=== PATIENT | female | born 1960 | race American Indian/Alaskan Native ===

== ENCOUNTER 2017-07-14 11:05 | Inpatient (IN) | payer MEDICARE, OTHER ==
--- NOTE | 2017-07-14 12:21 | Emergency Department Report ---
ED General Adult HPI - General Chief complaint: Dyspnea/Respdistress Stated complaint: DIFFICULTY BREATHING Source: patient, EMS (ems notes not available at time of chart dictation), RN notes reviewed Mode of arrival: Stretcher Limitations: No Limitations - History of Present Illness Initial comments: This is a 57-year-old female who was previously unknown to this provider. She does not make urine, has a past medical history of end-stage renal disease on dialysis. Patient got dialysis today, reports that they only took off 4 L, thinks that she is still by overloaded. Complains of pain with shortness of breath. Also admits to facial swelling. Denies dietary indiscretions. He has chronic left foot pain secondary to chronic gout, however this is not her main complaint. She reports her symptoms typically improves with dialysis. The patient further reports that she was recently admitted to [facility], had a superficial anterior abdominal wall surgery performed, but she is not having abdominal pain at this time. -: Gradual Consistency: constant Improves with: rest Worsens with: movement Associated Symptoms: shortness of breath - Related Data Allergies Allergy/AdvReac Type Severity Reaction Status Date / Time No Known Allergies Allergy Unverified 07/14/17 12:01 ED Review of Systems ROS: Stated complaint: DIFFICULTY BREATHING Other details as noted in HPI Constitutional: denies: fever ENT: denies: congestion Respiratory: shortness of breath, SOB with exertion Cardiovascular: dyspnea on exertion Gastrointestinal: denies: abdominal pain, nausea, vomiting Genitourinary: as per HPI Musculoskeletal: as per HPI Skin: as per HPI Neurological: as per HPI Psychiatric: as per HPI, anxiety ED Past Medical Hx - Past Medical History Previous Medical History?: Yes Hx Hypertension: Yes Hx Asthma: Yes Additional medical history: ESRD, gout - Social History Smoking Status: Current Every Day Smoker ED Physical Exam - General Limitations: No Limitations General appearance: alert - Head Head exam: Present: atraumatic, normocephalic - Eye Eye exam: Present: normal appearance - ENT ENT exam: Present: normal exam, normal orophraynx, mucous membranes moist, normal external ear exam - Neck Neck exam: Present: normal inspection, full ROM - Respiratory Respiratory exam: Present: respiratory distress, rales - Cardiovascular Cardiovascular Exam: Present: regular rate, normal rhythm, normal heart sounds, JVD (4 cm of jugular venous distention bilaterally). Absent: systolic murmur, diastolic murmur, rubs, gallop - GI/Abdominal GI/Abdominal exam: Present: soft, normal bowel sounds. Absent: distended, tenderness, guarding, rebound, rigid - Extremities Exam Extremities exam: Present: normal inspection, pedal edema. Absent: calf tenderness - Back Exam Back exam: Present: normal inspection, full ROM. Absent: tenderness, CVA tenderness (R), paraspinal tenderness, vertebral tenderness - Neurological Exam Neurological exam: Present: alert, oriented X3, CN II-XII intact, other ( Extraocular movements intact. Tongue midline. No facial droop. Facial sensation intact to light touch in the V1, V2, V3 distribution bilaterally. 5 and 5 strength in 4 extremities.. Sensation is intact to light touch in 4 extremities.). Absent: motor sensory deficit - Psychiatric Psychiatric exam: Present: normal affect, normal mood - Skin Skin exam: Present: warm, dry, intact, normal color. Absent: rash ED Course Vital Signs 07/14/17 07/14/17 11:53 14:34 Temperature 97.9 F Pulse Rate 60 88 Respiratory 20 24 Rate Blood Pressure 140/61 Blood Pressure 145/88 [Right] O2 Sat by Pulse 100 100 Oximetry - EJ/Peripheral Line Neck L Time Out Performed: Yes Indications: nurses unable to establis Skin Cleansed in Sterile Fashion: Yes Size: 20 Dressing Placed: Tegaderm Patient Tolerated Procedure: well ED Medical Decision Making - Lab Data Result diagrams: 07/14/17 12:09 07/14/17 12:09 Vital Signs 07/14/17 07/14/17 11:53 14:34 Temperature 97.9 F Pulse Rate 60 88 Respiratory 20 24 Rate Blood Pressure 140/61 Blood Pressure 145/88 [Right] O2 Sat by Pulse 100 100 Oximetry Lab Results 07/14/17 07/14/17 07/14/17 Range/Units 12:09 12:09 12:09 WBC 17.6 H (4.5-11.0) K/mm3 RBC 3.19 L (3.65-5.03) M/mm3 Hgb 10.2 (10.1-14.3) gm/dl Hct 30.7 (30.3-42.9) % MCV 97 (79-97) fl MCH 32 (28-32) pg MCHC 33 (30-34) % RDW 14.9 (13.2-15.2) % Plt Count 266 (140-440) K/mm3 Lymph % (Auto) 7.2 L (13.4-35.0) % [place] % (Auto) 3.9 (0.0-7.3) % Eos % (Auto) 0.1 (0.0-4.3) % Baso % (Auto) 0.2 (0.0-1.8) % Lymph # 1.3 (1.2-5.4) K/mm3 [place] # 0.7 (0.0-0.8) K/mm3 Eos # 0.0 (0.0-0.4) K/mm3 Baso # 0.0 (0.0-0.1) K/mm3 Seg Neutrophils % 88.6 H (40.0-70.0) % Seg Neutrophils # 15.6 H (1.8-7.7) K/mm3 PT (12.2-14.9) Sec. INR (0.87-1.13) APTT (24.2-36.6) Sec. Sodium 141 (137-145) mmol/L Potassium 4.3 (3.6-5.0) mmol/L Chloride 95.0 L (98-107) mmol/L Carbon Dioxide 25 (22-30) mmol/L Anion Gap 25 mmol/L BUN 59 H (7-17) mg/dL Creatinine 6.8 H (0.7-1.2) mg/dL Estimated GFR 8 ml/min BUN/Creatinine Ratio 9 % Glucose 108 H (65-100) mg/dL Calcium 8.4 (8.4-10.2) mg/dL Troponin T 0.071 H (0.00-0.029) ng/mL NT-Pro-B Natriuret Pep 8260 H (0-900) pg/mL Triglycerides 198 H (2-149) mg/dL Cholesterol 227 H (50-199) mg/dL LDL Cholesterol Direct 51 (50-130) mg/dL HDL Cholesterol 174 H (40-59) mg/dL Cholesterol/HDL Ratio 1.30 % 07/14/17 Range/Units 12:22 WBC (4.5-11.0) K/mm3 RBC (3.65-5.03) M/mm3 Hgb (10.1-14.3) gm/dl Hct (30.3-42.9) % MCV (79-97) fl MCH (28-32) pg MCHC (30-34) % RDW (13.2-15.2) % Plt Count (140-440) K/mm3 Lymph % (Auto) (13.4-35.0) % [place] % (Auto) (0.0-7.3) % Eos % (Auto) (0.0-4.3) % Baso % (Auto) (0.0-1.8) % Lymph # (1.2-5.4) K/mm3 [place] # (0.0-0.8) K/mm3 Eos # (0.0-0.4) K/mm3 Baso # (0.0-0.1) K/mm3 Seg Neutrophils % (40.0-70.0) % Seg Neutrophils # (1.8-7.7) K/mm3 PT 12.5 (12.2-14.9) Sec. INR 0.89 (0.87-1.13) APTT 26.7 (24.2-36.6) Sec. Sodium (137-145) mmol/L Potassium (3.6-5.0) mmol/L Chloride (98-107) mmol/L Carbon Dioxide (22-30) mmol/L Anion Gap mmol/L BUN (7-17) mg/dL Creatinine (0.7-1.2) mg/dL Estimated GFR ml/min BUN/Creatinine Ratio % Glucose (65-100) mg/dL Calcium (8.4-10.2) mg/dL Troponin T (0.00-0.029) ng/mL NT-Pro-B Natriuret Pep (0-900) pg/mL Triglycerides (2-149) mg/dL Cholesterol (50-199) mg/dL LDL Cholesterol Direct (50-130) mg/dL HDL Cholesterol (40-59) mg/dL Cholesterol/HDL Ratio % - EKG Data -: EKG Interpreted by Me - EKG Data 07/14/17 14:54 Sinus, 63 beats minute, normal axis, morphologically consistent with ST elevation myocardial infarction. - Radiology Data Radiology results: image reviewed interpreted by me: Cardiomegaly, pulmonary vascular congestion - Medical Decision Making Differential diagnosis, including not limited to: Congestive heart failure, volume overload, end-stage renal disease on dialysis Assessment and plan: 87-year-old female who subjectively feels like she is volume overloaded, has jugular venous distention, crackles and rales, venous congestion on x-ray of the chest. Physical examination i is most consistent with congestive heartfailure/vitamin overload. Case discussed with the patient's private transport pilot, Dr. Vargas, who will agree to arrange dialysis, and case presented to the Hospital physician, Dr. Wood, who graciously accepted the patient to the medical service. Critical care attestation.: If time is entered above; I have spent that time in minutes in the direct care of this critically ill patient, excluding procedure time. ED Disposition Clinical Impression: Volume overload, ESRD (end stage renal disease) Disposition: OP ADMIT IP TO THIS HOSP Is pt being admited?: Yes Condition: Good
[2017-07-14 12:33] LABS: Basophils % (Auto) 0.2 % (0.0-1.8); Eosinophils % (Auto) 0.1 % (0.0-4.3); Hematocrit 30.7 % (30.3-42.9); Hemoglobin 10.2 gm/dl (10.1-14.3); Mean Corpuscular HGB Conc 33 % (30-34); Mean Corpuscular Hemoglobin 32 pg (28-32); Mean Corpuscular Volume 97 fl (79-97); Platelet Count 266 K/mm3 (140-440); Red Blood Count 3.19 M/mm3 (3.65-5.03); Red Cell Distribution Width 14.9 % (13.2-15.2); White Blood Count 17.6 K/mm3 (4.5-11.0)
[2017-07-14 12:44] LABS: INR 0.89 (0.87-1.13)
[2017-07-14 12:45] LABS: Partial Thromboplastin Time 26.7 Sec. (24.2-36.6)
[2017-07-14 12:59] LABS: Calcium 8.4 mg/dL (8.4-10.2); Potassium 4.3 mmol/L (3.6-5.0)
--- NOTE | 2017-07-14 13:35 | Consultation ---
History of Present Illness - Reason for Consult Consult date: 07/14/17 end stage renal disease, other (volume overload) - History of Present Illness The patient is a 57 YO AAF with medical history significant for ESRD on HD(TTS) , Nicotine Dependence, Asthma, Obesity, Chronic hypotension 2/2 Adrenal insufficiency and Anemia came to the ER with sob. Patient presented to the hemodialysis today with 10 Kgs above her dry weight. Inspite of removing about 4.5 Lts of fluid with hemodialysis today she continues to have sob and orthopnea. She is well known to our service. Patient denies any fever, chills , N, V, D, abd pain, cough, hemoptysis, CP or syncope. Past History Past Medical History: anemia, dialysis, ESRD, renal failure Medications and Allergies Allergies Allergy/AdvReac Type Severity Reaction Status Date / Time No Known Allergies Allergy Unverified 07/14/17 12:01 Home Medications Medication Instructions Recorded Confirmed Last Taken Type ALBUTEROL Inhaler [Proair] 2 puff IH QID PRN 07/14/17 07/14/17 07/13/17 History Hydrocortisone [Cortef TAB] 20 mg PO BID 07/14/17 07/14/17 07/13/17 History Midodrine HCl 10 mg PO QID 07/14/17 07/14/17 07/13/17 History Prednisone 10 mg PO DAILY 07/14/17 07/14/17 07/13/17 History Review of Systems Constitutional: weight gain, chronic pain, no weight loss, no fever, no chills, no anorexia, no weakness Ears, nose, mouth and throat: no epistaxis Breasts: deferred Cardiovascular: orthopnea, edema, shortness of breath, dyspnea on exertion, leg edema, decreased exercise tolerance, no chest pain, no palpitations, no syncope , no lightheadedness, no high blood pressure Respiratory: shortness of breath, dyspnea on exertion, congestion, no cough Gastrointestinal: no abdominal pain, no nausea, no vomiting, no diarrhea, no melena Genitourinary Female: no dysuria, no hematuria Rectal: no bleeding Musculoskeletal: no redness of joints, no hot joints Integumentary: no rash, no wounds, no jaundice Neurological: no headaches, no convulsions, no change in mentation, no sensory deficit, no double vision, no loss of vision, no paralysis Psychiatric: no disorientation, no confusion Endocrine: weight change Hematologic/Lymphatic: no easy bleeding Exam - Vital Signs Vital signs: Vital Signs Temp Pulse Resp BP Pulse Ox 97.9 F 60 20 140/61 100 07/14/17 11:53 07/14/17 11:53 07/14/17 11:53 07/14/17 11:53 07/14/17 11:53 - General Appearance General appearance: well-developed, well-nourished, appears stated age, obese, other (no distress) EENT: ATNC, PERRL, hearing intact, vision intact, other (facial plethora noted) Neck: Present: neck supple, trachea midline Respiratory: Rales Heart: regular, S1S2, no murmurs Gastrointestinal: Present: normoactive bowel sounds, obese, other (right LQ wound noted). Absent: tenderness, distended Integumentary: no rash Neurologic: no focal deficit, no asterixis, alert and oriented x3 Musculoskeletal: Present: other (no pedal edema, left arm AVG) Psychiatric: mood/affect appropriate, cooperative Results - Lab Results 07/14/17 12:09 07/14/17 12:09 Most recent lab results Calcium 8.4 mg/dL (8.4-10.2) 07/14/17 12:09 Assessment and Plan 1. Volume overload: Received HD today with removal of about 4.5 Lts of fluid. Plan to do HD / UF tomorrow. 2. ESRD: Hemodialysis three times a week. 3. Anemia: Epogen prn on dialysis days. 4. Abdominal wall Actinomycosis: S/p I&D at [facility]. Metronidazole and IV Vancomycin started on 07/03/2017 for total of 6 weeks. 5. Adrenal Insufficiency: Resume Hydrocortisone. 6. Hypotension: Midodrine.
--- NOTE | 2017-07-14 13:57 | History and Physical Report ---
History of Present Illness Chief complaint: I cant breathe, and im swollen History of present illness: 57 YO Female with ESRD on HD(T,R,Sa), Nicotine Dependence, Asthma, HTN presents to ED for evaluation. Pt states that she has experienced shortness of breath over the past 3 days with persistent symptoms over the same time period. Pt underwent her scheduled dialysis today. Pt states that 4 L was taken off, but patient states that she is still short of breath. Pt states that her symptoms usually improve with dialysis. Pt denies fever, chills, palpitations, NVD, Syncope, BRBPR, recent ill contacts, productive cough, medication/dietary noncompliance, Trauma, or skin rashes. Pt seen and evaluated in ED and found to have respiratory failure secondary to fluid overload. Pt treated with supplemental oxygen, Nephrology consulted in ED for dialysis. Past History Past Medical History: ESRD, hypertension, other Social history: , smoking. denies: alcohol abuse, prescription drug abuse Family history: hypertension Medications and Allergies Allergies Allergy/AdvReac Type Severity Reaction Status Date / Time No Known Allergies Allergy Unverified 07/14/17 12:01 Home Medications Medication Instructions Recorded Confirmed Last Taken Type ALBUTEROL Inhaler [Proair] 2 puff IH QID PRN 07/14/17 07/14/17 07/13/17 History Hydrocortisone [Cortef TAB] 20 mg PO BID 07/14/17 07/14/17 07/13/17 History Midodrine HCl 10 mg PO QID 07/14/17 07/14/17 07/13/17 History Prednisone 10 mg PO DAILY 07/14/17 07/14/17 07/13/17 History Review of Systems Constitutional: weight gain, no weight loss, no fever, no chills Ears, nose, mouth and throat: no ear pain, no ear discharge, no tinnitis, no decreased hearing, no nose pain, no nasal congestion Breasts: no change in shape, no swelling, no mass Cardiovascular: edema, shortness of breath, no chest pain, no orthopnea, no palpitations Respiratory: no cough, no cough with sputum, no excessive sputum, no hemoptysis Gastrointestinal: no abdominal pain, no nausea, no vomiting, no diarrhea, no constipation, no change in bowel habits Genitourinary Female: no pelvic pain, no flank pain, no menorrhagia, no dysuria , no urinary frequency, no urgency Rectal: no pain, no incontinence, no bleeding Musculoskeletal: no neck stiffness, no neck pain, no shooting arm pain, no arm numbness/tingling, no low back pain, no shooting leg pain, no leg numbness/ tingling, no redness of joints Integumentary: no rash, no pruritis, no redness, no sores, no wounds, no jaundice Neurological: no transient paralysis, no paralysis, no weakness, no parathesias , no numbness, no tingling, no seizures Psychiatric: no anxiety, no memory loss, no change in sleep habits, no sleep disturbances, no insomnia, no hypersomnia Endocrine: no cold intolerance, no heat intolerance, no polyphagia, no excessive thirst, no polydipsia, no polyuria Hematologic/Lymphatic: no easy bruising, no easy bleeding Allergic/Immunologic: no urticaria, no allergic rhinitis, no wheezing Exam - Constitutional Vitals: Temp Pulse Resp BP Pulse Ox 97.9 F 60 20 140/61 100 07/14/17 11:53 07/14/17 11:53 07/14/17 11:53 07/14/17 11:53 07/14/17 11:53 General appearance: Present: mild distress - EENT Eyes: Present: PERRL ENT: hearing intact, clear oral mucosa - Neck Neck: Present: supple, normal ROM - Respiratory Respiratory effort: labored Respiratory: bilateral: diminished, wheezing - Cardiovascular Heart Sounds: Present: S1 & S2. Absent: rub, click - Extremities Extremities: pulses symmetrical, No edema Extremity abnormal: edema Peripheral Pulses: within normal limits - Abdominal General gastrointestinal: Present: soft, non-tender, non-distended, normal bowel sounds Female genitourinary: Present: normal - Integumentary Integumentary: Present: clear, warm, dry - Musculoskeletal Musculoskeletal: gait normal, strength equal bilaterally - Psychiatric Psychiatric: appropriate mood/affect, intact judgment & insight - Neurologic Neurologic: CNII-XII intact, moves all extremities Results - Labs CBC & Chem 7: 07/14/17 12:09 07/14/17 12:09 Labs: Abnormal lab results 07/14/17 07/14/17 07/14/17 Range/Units 12: 12: 12: WBC 17.6 H (4.5-11.0) K/mm3 RBC 3.19 L (3.65-5.03) M/mm3 Lymph % (Auto) 7.2 L (13.4-35.0) % Seg Neutrophils % 88.6 H (40.0-70.0) % Seg Neutrophils # 15.6 H (1.8-7.7) K/mm3 Chloride 95.0 L (98-107) mmol/L BUN 59 H (7-17) mg/dL Creatinine 6.8 H (0.7-1.2) mg/dL Glucose 108 H (65-100) mg/dL Troponin T 0.071 H (0.00-0.029) ng/mL NT-Pro-B Natriuret Pep 8260 H (0-900) pg/mL Triglycerides 198 H (2-149) mg/dL Cholesterol 227 H (50-199) mg/dL Assessment and Plan - Patient Problems (1) Acute respiratory failure Current Visit: Yes Status: Acute Plan to address problem: Supplemental oxygen, Nebs, Aspiration Precautions, nebulizer therapy, NIPPV as clinically indicated. CTA chest to evaluated persistent dypsnea s/p dialysis. (2) ESRD (end stage renal disease) Current Visit: Yes Status: Acute Plan to address problem: Nephrology consulted in ED, dialysis as per renal team, monitor uop q shift, low sodium diet, (3) Volume overload Current Visit: Yes Status: Acute Plan to address problem: Hold IVF therapy, Nephrology consulted for dialysis. (4) DVT prophylaxis Current Visit: Yes Status: Acute Plan to address problem: SCD to BLE while in bed.
[2017-07-14] MEDS ORDERED: TYLENOL PO PRN (14:03)
[2017-07-14] MEDS ORDERED: PROVENTIL IH PRN (14:03)
[2017-07-14] MEDS ORDERED: ZOFRAN IV PRN (14:03)
[2017-07-14] MEDS ORDERED: NACL 0.9% 100 ML IV PRN (14:05)
[2017-07-14] MEDS: FLAGYL PO SCH ×2 (14:33→20:58)
--- NOTE | 2017-07-14 14:56 | XRay Report ---
PORTABLE CHEST INDICATION: Dyspnea. COMPARISON: None similar. FINDINGS: Portable, frontal chest radiographs demonstrate sternotomy wires, as also right axillary and right paratracheal surgical clips. A right subclavian stent medially also noted. Aortic knob calcifications. Normal cardiomediastinal silhouette, though pulmonary arterial hypertension not entirely excluded. Clear lungs without pleural effusions or CHF. EKG leads. CONCLUSION: No acute chest process with various iatrogenic and other findings, as above. Please correlate. Thank you for the opportunity to participate in this patient's care.
[2017-07-14] MEDS ORDERED: PROAIR IH PRN (15:38)
[2017-07-14] MEDS: PROVENTIL IH SCH ×2 (17:44→22:00)
[2017-07-14] MEDS ORDERED: MIDODRINE HCL 10 MG PO SCH (18:00)
[2017-07-14] MEDS ORDERED: CORTEF PO SCH ×2 (18:00→22:00)
[2017-07-14] MEDS: PROAMATINE PO SCH ×3 (19:50→21:05)
[2017-07-14] MEDS ORDERED: NORCO 5/325 PO ONE (22:47)
[2017-07-15] MEDS ORDERED: PROAMATINE PO SCH ×3 (08:00→14:00)
[2017-07-15] MEDS: PROVENTIL IH SCH ×4 (08:02→20:32)
[2017-07-15] MEDS: FLAGYL PO SCH ×2 (09:07→16:10)
--- NOTE | 2017-07-15 09:35 | Progress Note ---
Assessment and Plan 1. Volume overload: Received HD yesterday with removal of about 4.5 Lts of fluid. Plan to remove 4 Lts with Isolated UF today. 2. ESRD: Hemodialysis three times a week. 3. Anemia: Epogen prn on dialysis days. 4. Abdominal wall Actinomycosis: S/p I&D at [facility]. Metronidazole and IV Vancomycin started on 07/03/2017 for total of 6 weeks. 5. Adrenal Insufficiency: Continue Hydrocortisone. 6. Hypotension: Midodrine. Subjective Date of service: 07/15/17 Interval history: No new complaint. Doing ok. Objective - Vital Signs Vital signs: Vital Signs - 12hr 07/14/17 07/14/17 07/14/17 21:55 22:00 22:05 Temperature Pulse Rate Pulse Rate [ 72 75 Anterior Bilateral Throughout] Pulse Rate [ 81 Left Radial] Pulse Rate [ 78 Right Radial] Respiratory Rate Respiratory 20 18 Rate [Anterior Bilateral Throughout] Blood Pressure O2 Sat by Pulse Oximetry 07/14/17 07/14/17 07/15/17 22:07 23:08 07:01 Temperature 97.5 F L Pulse Rate 68 Pulse Rate [ Anterior Bilateral Throughout] Pulse Rate [ Left Radial] Pulse Rate [ Right Radial] Respiratory 20 20 Rate Respiratory Rate [Anterior Bilateral Throughout] Blood Pressure 126/59 O2 Sat by Pulse 100 98 Oximetry - General Appearance General appearance: well-developed, well-nourished, appears stated age, obese, other (no distress) EENT: ATNC, PERRL, hearing intact Neck: supple Respiratory: Present: Rales Cardiology: regular, S1S2, no murmurs Gastrointestinal: normoactive bowel sounds, no distended, obese, other (RLQ surgical wound noted) Integumentary: no rash Neurologic: no focal deficit, no asterixis, alert and oriented x3 Musculoskeletal: other (no edema) Psychiatric: mood/affect appropriate, cooperative - Lab 07/14/17 12:09 07/14/17 12:09 Most recent lab results Calcium 8.4 mg/dL (8.4-10.2) 07/14/17 12:09
--- NOTE | 2017-07-15 09:58 | Progress Note ---
Hospitalist Physical - Constitutional Vitals: Temp Pulse Resp BP Pulse Ox 97.5 F L 68 20 126/59 98 07/15/17 07:01 07/15/17 07:01 07/15/17 07:01 07/15/17 07:01 07/15/17 07:01 General appearance: Present: mild distress Results - Labs CBC & Chem 7: 07/14/17 12:09 07/14/17 12:09 Labs: Laboratory Last Values WBC 17.6 K/mm3 (4.5-11.0) H 07/14/17 12:09 RBC 3.19 M/mm3 (3.65-5.03) L 07/14/17 12:09 Hgb 10.2 gm/dl (10.1-14.3) 07/14/17 12:09 Hct 30.7 % (30.3-42.9) 07/14/17 12:09 MCV 97 fl (79-97) 07/14/17 12:09 MCH 32 pg (28-32) 07/14/17 12:09 MCHC 33 % (30-34) 07/14/17 12:09 RDW 14.9 % (13.2-15.2) 07/14/17 12:09 Plt Count 266 K/mm3 (140-440) 07/14/17 12:09 Lymph % (Auto) 7.2 % (13.4-35.0) L 07/14/17 12:09 [place] % (Auto) 3.9 % (0.0-7.3) 07/14/17 12:09 Eos % (Auto) 0.1 % (0.0-4.3) 07/14/17 12:09 Baso % (Auto) 0.2 % (0.0-1.8) 07/14/17 12:09 Lymph # 1.3 K/mm3 (1.2-5.4) 07/14/17 12:09 [place] # 0.7 K/mm3 (0.0-0.8) 07/14/17 12:09 Eos # 0.0 K/mm3 (0.0-0.4) 07/14/17 12:09 Baso # 0.0 K/mm3 (0.0-0.1) 07/14/17 12:09 Seg Neutrophils % 88.6 % (40.0-70.0) H 07/14/17 12:09 Seg Neutrophils # 15.6 K/mm3 (1.8-7.7) H 07/14/17 12:09 PT 12.5 Sec. (12.2-14.9) 07/14/17 12:22 INR 0.89 (0.87-1.13) 07/14/17 12:22 APTT 26.7 Sec. (24.2-36.6) 07/14/17 12:22 Sodium 141 mmol/L (137-145) 07/14/17 12:09 Potassium 4.3 mmol/L (3.6-5.0) 07/14/17 12:09 Chloride 95.0 mmol/L (98-107) L 07/14/17 12:09 Carbon Dioxide 25 mmol/L (22-30) 07/14/17 12:09 Anion Gap 25 mmol/L 07/14/17 12:09 BUN 59 mg/dL (7-17) H 07/14/17 12:09 Creatinine 6.8 mg/dL (0.7-1.2) H 07/14/17 12:09 Estimated GFR 8 ml/min 07/14/17 12:09 BUN/Creatinine Ratio 9 % 07/14/17 12:09 Glucose 108 mg/dL (65-100) H 07/14/17 12:09 Calcium 8.4 mg/dL (8.4-10.2) 07/14/17 12:09 Troponin T 0.071 ng/mL (0.00-0.029) H 07/14/17 12:09 NT-Pro-B Natriuret Pep 8260 pg/mL (0-900) H 07/14/17 12:09 Triglycerides 198 mg/dL (2-149) H 07/14/17 12:09 Cholesterol 227 mg/dL (50-199) H 07/14/17 12:09 LDL Cholesterol Direct 51 mg/dL (50-130) 07/14/17 12:09 HDL Cholesterol 174 mg/dL (40-59) H 07/14/17 12:09 Cholesterol/HDL Ratio 1.30 % 07/14/17 12:09
[2017-07-15] MEDS ORDERED: DELTASONE PO SCH (10:00)
[2017-07-15] MEDS ORDERED: NON-FORMULARY (Prednisone [Prednisone] 10 MG) PO SCH (10:00)
[2017-07-15] MEDS ORDERED: CORTEF PO SCH ×2 (10:00→22:00)
--- NOTE | 2017-07-15 14:27 | Discharge Summary ---
Providers - Providers Date of Admission: 07/14/17 14:03 Date of discharge: 07/15/17 Attending physician: MATT MCFARLAND 07/14/17 13:24 Consult to Physician [CONS] Urgent Consulting Provider: ROSA DONNELLY Reason For Exam: esrd Notified:: yes 07/15/17 00:01 Consult to Wound/ET Nurse [CONS] Stat Reason For Exam: wound eval - Abdomina Primary care physician: PIN OR CLIP FASTENER Hospitalization Condition: Stable Hospital course: Discharge diagnoses: -Volume overload: Received HD yesterday with removal of about 4.5 Lts of fluid. Plan to remove 4 Lts with Isolated UF today. - ESRD: Hemodialysis three times a week. - Anemia of chronic renal disease Epogen prn on dialysis days. - Abdominal wall Actinomycosis: S/p I&D at [facility]. Metronidazole and IV Vancomycin started on 07/03/2017 for total of 6 weeks. D/ c from there on jul.11 -Adrenal Insufficiency: Continue Hydrocortisone. -Hypotension: Midodrine. -No objective data found for acute hypoxic respiratory failure D/W sales recruiter Dr. dano greco to discharge after HD, patient recently had a CTA units and is so patient refused. Disposition: DC- TO HOME OR SELFCARE Time spent for discharge: 33 minutes Core Measure Documentation - Palliative Care Palliative Care/ Comfort Measures: Not Applicable - Core Measures Any of the following diagnoses?: none - VTE Discharge Requirements Deep Vein Thrombosis/Pulmonary Embolism Present on Admission: No Has pt received <5 days of overlap therapy or INR<2.0: No Anticoagulant overlap therapy prescribed at discharge: No Contraindication No Overlap Therapy order at DC: Not Indicated Exam - Constitutional Vitals: Temp Pulse Resp BP Pulse Ox 96.7 F L 60 18 105/51 98 07/15/17 10:45 07/15/17 13:15 07/15/17 12:36 07/15/17 13:15 07/15/17 07:01 General appearance: Present: no acute distress - EENT Eyes: Present: PERRL, EOM intact ENT: hearing intact - Neck Neck: Present: supple - Respiratory Respiratory effort: normal Respiratory: bilateral: diminished - Cardiovascular Rhythm: regular Heart Sounds: Present: S1 & S2 Plan Activity: other (no strenous activity until cleared by pcp) Diet: renal Additional Instructions: Return to [facility] Follow up with: LILA PARDO MD [Primary Care Provider] - 3-5 Days ROSA DONNELLY MD [Staff Physician] - 7 Days
[2017-07-15 15:31] VITALS: BP 118/34
== END 2017-07-15 16:10 | disposition home or self-care (01) | DRG 682 ==
LOC: ED 11:05 → 3A 14:03
PROVIDERS: ADMIT Internal Medicine; ATTEND Internal Medicine
PROC: 5A1D70Z Performance of Urinary Filtration, Intermittent, Less than 6 Hours Per Day (ICD-10-PCS; principal; 2017-07-15)
DX: I12.0 Hypertensive chronic kidney disease with stage 5 chronic kidney disease or end stage renal disease (principal); N18.6 End stage renal disease; J96.00 Acute respiratory failure, unspecified whether with hypoxia or hypercapnia; E27.40 Unspecified adrenocortical insufficiency; A42.1 Abdominal actinomycosis; E87.70 Fluid overload, unspecified; I95.9 Hypotension, unspecified; D63.8 Anemia in other chronic diseases classified elsewhere; J45.909 Unspecified asthma, uncomplicated; M10.9 Gout, unspecified; F17.200 Nicotine dependence, unspecified, uncomplicated; F41.9 Anxiety disorder, unspecified; G89.29 Other chronic pain; E66.9 Obesity, unspecified; Z68.34 Body mass index [BMI] 34.0-34.9, adult; Z82.49 Family history of ischemic heart disease and other diseases of the circulatory system
CPT/HCPCS: 36415; 71010; 80048; 80061; 83880; 84484; 85025; 85610; 85730; 93005; 93010; 94640; 99285; 99406